=== PATIENT | female | born 1960 | race Caucasian/White ===

== ENCOUNTER 2017-04-17 08:14 | Emergency (ER) | payer BC ==
[~2017-04-17] VITALS: Ht 152.4 cm; Wt 78.0 kg
[~2017-04-17 08:14] MED LIST: NAPR-260 PO
[2017-04-17 08:20] VITALS: Ht 152.4 cm; Wt 78.0 kg
[2017-04-17] MEDS ORDERED: HYDROCODONE/APAP (5/325) TAB PO ONE (09:00)
--- NOTE | 2017-04-17 09:57 | RADRPT ---
PROCEDURE: XR right ankle and left Ankle. CLINICAL INDICATION: Bilateral ankle pain TECHNIQUE: 3 views of the right ankle and 3 views of the left ankle were performed. COMPARISON: Radiographs of the left ankle May 20, 2016 FINDINGS: Right ankle: There is no evidence of acute fracture. Joint spaces are preserved. The soft tissues are grossly unremarkable. The talar dome is normal. There is calcaneal enthesopathy. Left ankle. There is no evidence of acute fracture. Joint spaces are preserved. The soft tissues are grossly unremarkable. Talar dome is normal. There is calcaneal enthesopathy. IMPRESSION: 1. No radiographic evidence of acute osseous abnormality of either ankle. 2. Calcaneal enthesopathy bilaterally. RPTAT: UU .Oscar Rangel MD, Date Time Electronically viewed and signed by .Oscar Rangel MD, on 04/17/2017 09:57 .K/
--- NOTE | 2017-04-17 09:58 | RADRPT ---
PROCEDURE: XR Elbow. CLINICAL INDICATION: Trauma, left elbow pain TECHNIQUE: AP, lateral and oblique views of the left elbow performed. COMPARISON: None. FINDINGS: There is no radiographic evidence of acute fracture or dislocation. There is no significant joint e ffusion. The joint spaces are preserved. The soft tissues are grossly unremarkable. IMPRESSION: 1. No radiographic evidence of acute osseous abnormality or significant joint effusion. RPTAT: UU .Oscar Rangel MD, MD Date Time Electronically viewed and signed by .Oscar Rangle MD, on 04/17/2017 09:58 .K/
--- NOTE | 2017-04-17 09:59 | RADRPT ---
PROCEDURE: XR Knee. CLINICAL INDICATION: Bilateral knee pain TECHNIQUE: Three views of the right knee and 3 views of the left knee are available for review. COMPARISON: None available FINDINGS: Right knee: There is no evidence of acute fracture. There is severe medial femorotibial compartmen t osteoarthrosis with mild lateral and patellofemoral compartment osteoarthrosis. There is no signi ficant joint effusion. The soft tissues appear grossly unremarkable. There is mild genu varus. Left knee: There is no evidence of acute fracture. There is moderate to severe medial and mild lat eral and patellofemoral compartment osteoarthrosis. There is no significant joint effusion. The so ft tissues are grossly unremarkable. There is mild genu varus. IMPRESSION: 1. No radiographic evidence of acute osseous abnormality of either knee. 2. Tricompartmental osteoarthrosis of both knees, medial femorotibial compartment, severe on the ri ght and moderate to severe on the left. RPTAT: UU .Oscar Rangel MD, MD Date Time Electronically viewed and signed by .Oscar Rangel MD, MD on 04/17/2017 09:59 .K/
[2017-04-17] MEDS ORDERED: TRAM50TA2 PO (10:10)
[2017-04-17 10:34] VITALS: BP 128/75; PULSE 74; RESP 18; TEMP 97.4
--- NOTE | 2017-04-17 10:36 | ERD ---
ER Documentation Chief Complaint Date/Time DATE: 04/17/17 TIME: 10:29 Chief Complaint b/l knee pain , lt elbow pain s/p fall x 2 days ago HPI This is a 56-year-old female that presents to the ER with bilateral knee pain that is been going on for the last few months. 2 days ago patient did fall and states that knee pain has gotten worse. She is also complaining of left elbow pain and bilateral ankle pain. Pain is described as throbbing in quality it is nonradiating. Patient tried taking Aleve however it did not help. Pain is worse whenever she walks. She denies any numbness or tingling of her extremities. She denies any fevers or chills. ROS 12 point review of systems was done, all negative except per HPI. Medications Home Meds Active Scripts Tramadol HCl (Tramadol HCl) 50 Mg Tablet, 50 MG PO Q4 Y for PAIN, #20 TAB Prov:MAZIN HAN 04/17/17 Naproxen* (Naprosyn*) 500 Mg Tablet, 500 MG PO BID Y for PAIN AND/OR INFLAMMATION, #30 TAB Prov:STACY RUTH PA-C 05/20/16 Allergies Allergies: Coded Allergies: No Known Allergies (Verified Allergy, Unknown, 04/17/17) PMhx/Soc History of Surgery: No Anesthesia Reaction: No Hx Neurological Disorder: No Hx Respiratory Disorders: No Hx Cardiac Disorders: No Hx Psychiatric Problems: No Hx Miscellaneous Medical Probl: Yes (arthritis) Hx Alcohol Use: No Hx Substance Use: No Hx Tobacco Use: No Smoking Status: Never smoker Physical Exam Vitals Vital Signs Date Time Temp Pulse Resp B/P Pulse Ox O2 Delivery O2 Flow Rate FiO2 04/17/17 08:20 98.1 87 18 118/74 98 Physical Exam GENERAL: The patient is well developed and appropriate for usual state of health , in no apparent distress. HEENT: Atraumatic. CHEST: Clear to auscultation bilaterally. There are no rales, wheezes or rhonchi. HEART: Regular rate and rhythm. No murmurs, clicks, rubs or gallops. EXTREMITIES: left elbow: patient has full ROM of the left elbow, no crepitus no deformities. elbow is not ttp. Left knee: patient has painful extension and flexion of the left knee, however normal ROM. negative anterior drawer, negative posterior drawer, negative aydee. she is TTP along the patella. Right Knee: patient has painful extension and flexion of the right knee, however normal ROM. negative anterior drawer, negative posterior drawer, negative aydee. she is TTP along the patella. normal and but painful ROM of bilateral ankles. negative tarsal twist test. +2 pulses. normal strength of bilateral feet. L4, L5, S1 are intact. negative squeeze test. NEURO: Alert and oriented. SKIN: There is no apparent rash or petechia. The skin is warm and dry. Results 24 hrs Current Medications Medications (Trade) Dose Ordered Sig/Krzysztof Route PRN Reason Start Time Stop Time Status Last Admin Dose Admin Acetaminophen/ Hydrocodone Bitart (Jeannette (5/325)) 1 tab ONCE ONCE PO 04/17/17 09:00 04/17/17 09:01 DC 04/17/17 08:47 Procedures/MDM This is a 56-year-old female presents to the ER with bilateral knee pain, left elbow pain and bilateral ankle pain. Patient does have a past medical history of joint pain, on x-ray there was evidence of arthritis in bilateral knees. This may be the reason for patient's ongoing bilateral knee pain. There is no evidence of fractures or dislocations secondary to the fall. Patient is neurovascularly intact and has full range of motion of all extremities. She is afebrile and well-appearing. She is able to ambulate in the ER without any problems. She is neurologically intact with no focal neurological deficits. I doubt deep space infection, septic joint, septic arthritis, osteomyelitis. Patient will be sent home with tramadol. She is to follow-up with her primary care doctor within 1-2 days or return to ER sooner if symptoms worsen. My medical decision making was shared with the patient she understands and agrees with plan. Departure Diagnosis: Primary Impression: Knee pain Condition: Stable Patient Instructions: Osteoarthritis: Coping with Pain Additional Instructions: Call your primary care doctor TOMORROW for an appointment during the next 1-2 days.See the doctor sooner or return here if your condition worsens before your appointment time. MAZIN HAN April 17, 2017 10:36
== END 2017-04-17 10:35 | disposition home or self-care (01) ==
LOC: FTE 08:14
DX: M25.562 Pain in left knee (principal); M25.561 Pain in right knee

== ENCOUNTER 2017-04-24 08:22 | Emergency (ER) | payer BC ==
[~2017-04-24] VITALS: Ht 160 cm; Wt 80.0 kg
[~2017-04-24 08:22] MED LIST changes: +TRAM50TA2 PO
[2017-04-24 08:24] VITALS: Ht 160 cm; Wt 80.0 kg
[2017-04-24] MEDS ORDERED: SOD CHLORIDE 0.9% 1,000 ML IV STA (08:37)
[2017-04-24] MEDS ORDERED: ONDANSETRON 4 MG INJ IV STA (08:37)
[2017-04-24] MEDS ORDERED: HYDROmorphONE 1 MG/ML SYG IV STA ×2 (08:37→11:19)
[2017-04-24 09:07] LABS: ADD SCAN DIFF NO
[2017-04-24 09:12] LABS: BASOPHILS % 0.2 % (0.0-2.0); EOSINOPHILS # 0.1 10^3/ul (0.0-0.5); EOSINOPHILS % 0.8 % (0.0-7.0); HEMATOCRIT 41.3 % (37.0-47.0); HEMOGLOBIN 13.9 g/dl (12.0-16.0); LYMPHOCYTES # 2.7 10^3/ul (0.8-2.9); LYMPHOCYTES % 29.1 % (15.0-51.0); MEAN CORPUSCULAR HEMOGLOBIN 29.1 pg (29.0-33.0); MEAN CORPUSCULAR HGB CONC 33.7 g/dl (32.0-37.0); MEAN CORPUSCULAR VOLUME 86.6 fl (82.0-101.0); MEAN PLATELET VOLUME 9.8 fl (7.4-10.4); MONOCYTE # 0.6 10^3/ul (0.3-0.9); NEUTROPHIL # 5.7 10^3/ul (1.6-7.5); NEUTROPHILS % 62.5 % (39.0-77.0); PLATELET COUNT 392 10^3/UL (140-415); RED BLOOD COUNT 4.77 10^6/ul (4.20-5.40); RED CELL DISTRIBUTION WIDTH 12.5 % (11.5-14.5); WHITE BLOOD COUNT 9.2 10^3/ul (4.8-10.8)
[2017-04-24 09:24] LABS: INR 0.99; PROTIME 13.1 Sec (12.2-14.2)
--- NOTE | 2017-04-24 09:26 | RADRPT ---
PROCEDURE: CT Abdomen and Pelvis without contrast. CLINICAL INDICATION: Abdominal pain TECHNIQUE: CT of the abdomen and pelvis was performed on a multi-detector scanner without IV contr ast. Coronal and sagittal images were reformatted from the axial data set. One or more of the foll owing dose reduction techniques were used: automated exposure control, adjustment of the mA and/or kV according to patient size, use of iterative reconstruction technique. CTDI = 17.84 mGy. DLP = 10 33.29 mGy-cm. COMPARISON: None. FINDINGS: CT abdomen: The lung bases are clear. The heart size is normal, without pericardial effusion. Hepatomegaly is noted, measuring 20 cm. No focal hepatic mass is identified. Gallbladder, biliary tree, pancreas, spleen, adrenal glands and kidneys are unremarkable. No urolithiasis or obstructive uropathy is nahid ntified. Small hiatal hernia is noted. The stomach is otherwise grossly unremarkable. The aorta is of normal caliber. There is no retroperitoneal lymphadenopathy. The vance hepatis reg ion is clear. CT pelvis: Rectal wall thickening and perirectal edema are noted, compatible with proctitis. Mild retained fec al material is suggestive of constipation. No bowel obstruction, free intraperitoneal air or absces s is identified. The appendix is well visualized and normal. There is no diverticulosis or diverti culitis. Urinary bladder, uterus and adnexa are grossly unremarkable. No pelvic mass, free fluid o r lymphadenopathy is identified. The surrounding osseous structures are unremarkable. No osteolytic or osteoblastic lesion is detect ed. IMPRESSION: 1. Rectal wall thickening and perirectal edema are identified, compatible with proctitis. 2. Mild retained fecal material is suggestive of constipation. 3. Hepatomegaly is noted, without evidence of focal mass. 4. Small hiatal hernia is present. 5. No mass or lymphadenopathy is identified. RPTAT: EE .Nando Ramirez MD, Date Time Electronically viewed and signed by .Nando Ramirez MD, MD on 04/24/2017 09:26 .R/
[2017-04-24 09:27] LABS: ALBUMIN 4.6 g/dl (3.3-4.9); ALBUMIN/GLOBULIN RATIO 1.7; BILIRUBIN,INDIRECT 0.3 mg/dl (0-1.1); BILIRUBIN,TOTAL 0.3 mg/dl (0.2-1.3); CALCIUM 9.9 mg/dl (8.4-10.2); CREATININE 0.59 mg/dl (0.44-1.00); POTASSIUM 4.1 mmol/L (3.5-5.1); TOTAL PROTEIN 7.3 g/dl (6.1-8.1)
[2017-04-24] MEDS ORDERED: PIPER-TAZO 3.375 GM IV (PMX) 100 ML IVPB ONE (10:00)
[2017-04-24 11:02] VITALS: BP 108/59; PULSE 85; RESP 18; TEMP 97.4
--- NOTE | 2017-04-24 11:19 | ERD ---
ER Documentation Chief Complaint Date/Time DATE: 04/24/17 TIME: 11:14 Chief Complaint constipated x 3 days, appears having hemorrhoids, hAS RECTAL PAIN HPI 57-year-old woman complains of lower abdominal pain and rectal pain, which is severe beginning last night associated with recent constipation. She does have a history of hemorrhoids but denies blood per rectum or melena. She denies fevers or chills, no vomiting, no chest pain or shortness of breath. ROS All systems reviewed and are negative except as per history of present illness. Medications Home Meds Discontinued Scripts Tramadol HCl (Tramadol HCl) 50 Mg Tablet, 50 MG PO Q4 Y for PAIN, #20 TAB Prov:MAZIN HAN 04/17/17 Naproxen* (Naprosyn*) 500 Mg Tablet, 500 MG PO BID Y for PAIN AND/OR INFLAMMATION, #30 TAB Prov:STACY RUTH PA-C 05/20/16 Allergies Allergies: Coded Allergies: No Known Allergies (Verified Allergy, Unknown, 04/24/17) PMhx/Soc Constipation, hemorrhoids History of Surgery: No Anesthesia Reaction: No Hx Neurological Disorder: No Hx Respiratory Disorders: No Hx Cardiac Disorders: No Hx Psychiatric Problems: No Hx Miscellaneous Medical Probl: Yes (arthritis,hemorrhoids) Hx Alcohol Use: No Hx Substance Use: No Hx Tobacco Use: No Smoking Status: Never smoker FmHx Family History: No diabetes Physical Exam Vitals Vital Signs Date Time Temp Pulse Resp B/P Pulse Ox O2 Delivery O2 Flow Rate FiO2 04/24/17 11:02 97.4 85 18 108/59 98 Room Air 04/24/17 08:24 98.1 80 18 142/80 99 Physical Exam GENERAL: Well-developed, well-nourished, moderate discomfort HEENT: Moist mucous membranes, pink conjunctiva, no cervical spine tenderness or step-off deformities, no goiter, no jaundice or icterus, extraocular movements intact without pain. No submandibular induration, and no pharyngeal erythema NEURO: Alert and oriented 3, cranial nerves II through XII intact bilaterally, pupils equal round reactive to light, no focal deficits or facial asymmetry, sensation intact distally Strength 5/5 in upper and lower extremities bilaterally CARDIAC: Regular rate and rhythm, no murmurs rubs or gallops LUNGS: Clear bilaterally no wheezing crackles or stridor ABDOMEN: Soft nontender, no guarding, no rigidity, no rebound, no psoas sign no obturator sign. Normoactive bowel sounds SKIN: Warm and dry to touch, no abrasions, contusions, or hematomas, no lacerations, no ecchymosis, no target lesions, and without ulcers EXTREMITIES: No clubbing cyanosis or edema, calves are bilaterally symmetrical, no Homans sign, no popliteal cord sign. Distal pulses equal and bilateral PSYCH: Normal affect without agitation or irritability Result Diagram: 04/24/1745 04/24/17 0845 Results 24 hrs Laboratory Tests Test 04/24/17 08:45 White Blood Count 9.210^3/ul Red Blood Count 4.7710^6/ul Hemoglobin 13.9g/dl Hematocrit 41.3% Mean Corpuscular Volume 86.6fl Mean Corpuscular Hemoglobin 29.1pg Mean Corpuscular Hemoglobin Concent 33.7g/dl Red Cell Distribution Width 12.5% Platelet Count 14514^3/UL Mean Platelet Volume 9.8fl Neutrophils % 62.5% Lymphocytes % 29.1% Monocytes % 7.0% Eosinophils % 0.8% Basophils % 0.2% Nucleated Red Blood Cells % 0.0/100WBC Neutrophils # 5.710^3/ul Lymphocytes # 2.710^3/ul Monocytes # 0.610^3/ul Eosinophils # 0.110^3/ul Basophils # 0.010^3/ul Nucleated Red Blood Cells # 0.010^3/ul Prothrombin Time 13.1Sec Prothrombin Time Ratio 1.0 INR International Normalized Ratio 0.99 Sodium Level 143mmol/L Potassium Level 4.1mmol/L Chloride Level 108mmol/L Carbon Dioxide Level 26mmol/L Anion Gap 13 Blood Urea Nitrogen 18mg/dl Creatinine 0.59mg/dl Glucose Level 129mg/dl Calcium Level 9.9mg/dl Total Bilirubin 0.3mg/dl Direct Bilirubin 0.00mg/dl Indirect Bilirubin 0.3mg/dl Aspartate Amino Transf (AST/SGOT) 22IU/L Alanine Aminotransferase (ALT/SGPT) 47IU/L Alkaline Phosphatase 93IU/L Total Protein 7.3g/dl Albumin 4.6g/dl Globulin 2.70g/dl Albumin/Globulin Ratio 1.70 Lipase 63U/L Current Medications Medications (Trade) Dose Ordered Sig/Krzysztof Route PRN Reason Start Time Stop Time Status Last Admin Dose Admin Sodium Chloride (NS) 1,000 ml @ 1,000 mls/hr Q1H STAT IV 04/24/17 08:37 04/24/17 09:36 DC 04/24/17 08:53 Hydromorphone HCl (Dilaudid) 1 mg ONCE STAT IV 04/24/17 08:37 04/24/17 08:38 DC 04/24/17 08:53 Ondansetron HCl 4 mg 4 mg ONCE STAT IV 04/24/17 08:37 04/24/17 08:38 DC 04/24/17 08:53 Piperacillin Sod/ Tazobactam Sod (Zosyn 3.375gm/ 100 ml (Pmx)) 100 ml @ 200 mls/hr ONCE ONCE IVPB 04/24/17 10:00 04/24/17 10:29 DC 04/24/17 09:38 Procedures/MDM IV line was established patient was placed on metallurgist helper rhythm strip revealed a sinus rhythm at about 90 bpm with upright P and T waves. Patient was afebrile. I administered 1 L normal saline intravenously and hydromorphone 1 mg IV with good effect. Inspection revealed a tender firm internal hemorrhoid with prolapse, no active bleeding and no evidence of thrombosis or discoloration. For continued pain she was given another dose of hydromorphone [address] scan of the abdomen and pelvis revealed acute proctitis with bowel wall edema. Please refer to radiologist dictation for full report. Patient received piperacillin tazobactam 3.375 g IV 1. CBC and electrolytes were unremarkable, liver function tests were normal. Patient will be admitted to [facility] for continued medical management and possible surgical consultation. Departure Diagnosis: Primary Impression: Proctitis Additional Impressions: Intractable pain Hemorrhoid prolapse Condition: RODRIGO Horne MD Apr 24, 2017 11:19
[2017-04-24] MEDS ORDERED: BISACODYL 10 MG SUPP PR ONE (15:00)
[2017-04-24] MEDS ORDERED: SOD CHLORIDE 0.9% 1,000 ML IV SCH (15:07)
[2017-04-24] MEDS ORDERED: DOCUSATE SODIUM 100 MG CAP PO PRN (15:30)
[2017-04-24] MEDS ORDERED: ALBUTEROL/IPRATROPIUM (NEB) 3 ML AMP HHN PRN (15:30)
[2017-04-24] MEDS ORDERED: ONDANSETRON 4 MG INJ IV PRN (15:30)
[2017-04-24] MEDS ORDERED: morphine 2 MG INJ IV PRN (15:30)
[2017-04-24] MEDS ORDERED: NACL 0.9% 3 ML SYG IV SCH (15:30)
[2017-04-24] MEDS ORDERED: NITROGLYCERIN (SL) 0.4 MG TAB SL PRN (15:30)
[2017-04-24] MEDS ORDERED: MAGNESIUM HYDROXIDE 30ML CUP PO PRN (15:30)
[2017-04-24] MEDS ORDERED: NA PHOSPHATE/BIPHOS 133 ML ENEMA PR PRN (15:30)
[2017-04-24] MEDS ORDERED: ACETAMINOPHEN 325 MG TAB PO PRN (15:30)
[2017-04-24] MEDS ORDERED: HYDROCODONE/APAP (5/325) TAB PO PRN (15:30)
[2017-04-24] MEDS ORDERED: hydrALAzine 20 MG INJ IV PRN (15:30)
[2017-04-24] MEDS ORDERED: LORAZEPAM 0.5 MG TAB PO PRN (15:30)
--- NOTE | 2017-04-24 15:35 | DS ---
Date/Time of Note Date/Time of Note DATE: 04/24/17 TIME: 15:34 Discharge Summary Admission/Discharge Info Admit Date/Time Discharge Date/Time Final Diagnosis Proctitis - Pt left AMA from ER Hospital Course Pt left AMA from ER Home Meds Discontinued Scripts Tramadol HCl (Tramadol HCl) 50 Mg Tablet, 50 MG PO Q4 Y for PAIN, #20 TAB Prov:MAZIN HAN 04/17/17 Naproxen* (Naprosyn*) 500 Mg Tablet, 500 MG PO BID Y for PAIN AND/OR INFLAMMATION, #30 TAB Prov:STACY RUTH PA-C 05/20/16 Primary Care Provider Not On Staff Doctor Pending Labs Laboratory Tests Test 04/24/17 08:45 White Blood Count 9.210^3/ul (4.8-10.8) Red Blood Count 4.7710^6/ul (4.20-5.40) Hemoglobin 13.9g/dl (12.0-16.0) Hematocrit 41.3% (37.0-47.0) Mean Corpuscular Volume 86.6fl (82.0-101.0) Mean Corpuscular Hemoglobin 29.1pg (29.0-33.0) Mean Corpuscular Hemoglobin Concent 33.7g/dl (32.0-37.0) Red Cell Distribution Width 12.5% (11.5-14.5) Platelet Count 84474^3/UL (140-415) Mean Platelet Volume 9.8fl (7.4-10.4) Neutrophils % 62.5% (39.0-77.0) Lymphocytes % 29.1% (15.0-51.0) Monocytes % 7.0% (0.0-11.0) Eosinophils % 0.8% (0.0-7.0) Basophils % 0.2% (0.0-2.0) Nucleated Red Blood Cells % 0.0/100WBC (0.0-0.0) Neutrophils # 5.710^3/ul (1.6-7.5) Lymphocytes # 2.710^3/ul (0.8-2.9) Monocytes # 0.610^3/ul (0.3-0.9) Eosinophils # 0.110^3/ul (0.0-0.5) Basophils # 0.010^3/ul (0.0-0.1) Nucleated Red Blood Cells # 0.010^3/ul (0.0-0.0) Prothrombin Time 13.1Sec (12.2-14.2) Prothrombin Time Ratio 1.0 INR International Normalized Ratio 0.99 Sodium Level 143mmol/L (135-144) Potassium Level 4.1mmol/L (3.5-5.1) Chloride Level 108mmol/L (97-110) Carbon Dioxide Level 26mmol/L (21-31) Anion Gap 13 (8-16) Blood Urea Nitrogen 18mg/dl (7-20) Creatinine 0.59mg/dl (0.44-1.00) Glucose Level 129mg/dl (70-220) Calcium Level 9.9mg/dl (8.4-10.2) Total Bilirubin 0.3mg/dl (0.2-1.3) Direct Bilirubin 0.00mg/dl (0.00-0.20) Indirect Bilirubin 0.3mg/dl (0-1.1) Aspartate Amino Transf (AST/SGOT) 22IU/L (15-46) Alanine Aminotransferase (ALT/SGPT) 47IU/L (13-69) Alkaline Phosphatase 93IU/L (42-121) Total Protein 7.3g/dl (6.1-8.1) Albumin 4.6g/dl (3.3-4.9) Globulin 2.70g/dl (1.3-3.2) Albumin/Globulin Ratio 1.70 Lipase 63U/L (23-300) JAVIER REYES Apr 24, 2017 15:35
[2017-04-24] MEDS ORDERED: PIPER-TAZO 3.375 GM IV (PMX) 100 ML IVPB SCH (18:00)
[2017-04-24] MEDS ORDERED: HEPARIN 5,000 UNIT/0.5 ML VIAL SC SCH (21:00)
[2017-04-25] MEDS ORDERED: PANTOPRAZOLE (EC) 40 MG TAB PO SCH (06:00)
== END 2017-04-24 15:00 | disposition left against medical advice (07) ==
LOC: E/R 08:22
DX: K62.89 Other specified diseases of anus and rectum (principal); K64.8 Other hemorrhoids; R10.30 Lower abdominal pain, unspecified; R40.2142 Coma scale, eyes open, spontaneous, at arrival to emergency department; R40.2362 Coma scale, best motor response, obeys commands, at arrival to emergency department; R40.2252 Coma scale, best verbal response, oriented, at arrival to emergency department
CPT/HCPCS: 36415; 74176; 80053; 83690; 85025; 85610; 96374; 96375; 96376; 99285; J1170; J2405; J2543; J7030

== ENCOUNTER 2019-03-30 11:17 | Emergency (ER) | payer BC, OTHER ==
[~2019-03-30] VITALS: Ht 152.4 cm; Wt 77.4 kg
[2019-03-30 11:45] VITALS: Ht 152.4 cm; Wt 77.4 kg
[2019-03-30] MEDS ORDERED: ACET325T33 PO (16:45)
[2019-03-30] MEDS ORDERED: NAPR-985 PO (16:45)
[2019-03-30 16:55] VITALS: BP 135/79; PULSE 68; RESP 18
--- NOTE | 2019-03-30 16:57 | ERD ---
ER Documentation Chief Complaint Chief Complaint right knee pain x 5 days HPI This is a 58-year-old female patient presents emergency room with complaint of pain with walking to right knee. Patient states she knows she has arthritis however the pain has worsened over the last week. States she stood up yesterday and heard a crunching sound in her knee. Patient ambulating with antalgic gait. ROS All systems reviewed and are negative except as per history of present illness. Medications Home Meds Active Scripts Acetaminophen* (Tylenol*) 325 Mg Tablet, 2 TAB PO Q8 PRN for PAIN AND OR ELEVATED TEMP, #20 TAB Prov:CARMINA NAVA CLOSING SUPERVISOR 03/30/19 Naproxen* (Naprosyn*) 500 Mg Tablet, 500 MG PO BID PRN for PAIN AND/OR INFLAMMATION, #30 TAB Prov:CARMINA NAVA CLOSING SUPERVISOR 03/30/19 Allergies Allergies: Coded Allergies: No Known Allergies (Verified Allergy, Unknown, 04/24/17) PMhx/Soc History of Surgery: No Anesthesia Reaction: No Hx Neurological Disorder: No Hx Respiratory Disorders: No Hx Cardiac Disorders: No Hx Psychiatric Problems: No Hx Miscellaneous Medical Probl: Yes (arthritis,hemorrhoids) Hx Alcohol Use: No Hx Substance Use: No Hx Tobacco Use: No Smoking Status: Never smoker FmHx Family History: No diabetes, No coronary disease, No other Physical Exam Vitals Vital Signs Date Temp Pulse Resp B/P (MAP) Pulse Ox O2 O2 Flow FiO2 Time Delivery Rate 03/30/19 97.9 69 18 132/70 98 11:45 (90) Physical Exam Const: No acute distress Head: Atraumatic Eyes: Normal Conjunctiva ENT: Normal External Ears, Nose and Mouth. Neck: Full range of motion. No meningismus. Resp: Clear to auscultation bilaterally Cardio: Regular rate and rhythm, no murmurs Abd: Soft, non tender, non distended. Normal bowel sounds Skin: No petechiae or rashes Back: No midline or flank tenderness Ext: No cyanosis, or edema Lower Extremity Pain onset: increasing over 1 week Skin: No laceration, no bruising, no abrasions Compartments: Soft, no erythema, normothermic, no swelling, no claudication Motor: Full active range of motion hip/knee/ankle/foot Sensation: No paraesthesia Bones: Nontender patella/head of fibula/proximal tibia/ malleoli/foot Joints: No effusion, patella midline, neg anterior drawer, neg posterior drawer , neg Mmii, neg Sedrick, neg Varus/Valgus Pulses/Perfusion: 2+ DP, Capillary refill < 2 seconds Gait: antalgic gait ROM: No limitations with active or passive range of motion [place] Rule for xray: recommended Neur: Awake and alert Psych: Normal Mood and Affect Procedures/MDM This is a 58-year-old female patient who presents the emergency room with pain in right knee ED COURSE: The patient was stable throughout ED course. I kept the patient and/or family informed of laboratory and diagnostic imaging results throughout the ED course DIAGNOSTIC IMAGING: Read by radiologist. IMPRESSION: 1. Advanced try compartmental osteoarthritis. This has progressed when compared to 04/17/2017. 2. No acute abnormality demonstrated. PROCEDURES: Right knee immobilizer placed MEDICATIONS GIVEN: None, she declines as she took Tylenol prior to arrival MDM: Patient's extremity symptoms have stabilized while they have been evaluated in the department and are appropriate for outpatient follow up. This patient has been evaluated for knee pain. Radiological evaluation is negative for fracture, dislocation, or avulsion. The physical exam of the knee d oes not reveal ligamentous or meniscal injury at this time. There is swelling in the joint. There is low suspicion for this being a septic joint as the patient is afebrile without recent illness, the joint is normothermic. No evidence of compartment syndrome, neurologic injury, vascular injury, open joint, open fracture, tendon laceration, or foreign body. The patient has been provided with knee immobilizer, patches declined, patient states she has cane at home. Instructed on RICE. Rx for NSAID provided. Patient needs to follow-up with primary care provider. DISPOSITION: The patient has been discharge home to follow-up with community physician. Departure Diagnosis: Primary Impression: Arthritis Condition: Stable Patient Instructions: VeroICristaCCristaE., Osteoarthritis: Coping with Pain Referrals: [facility] YOU HAVE RECEIVED A MEDICAL SCREENING EXAM AND THE RESULTS INDICATE THAT YOU DO NOT HAVE A CONDITION THAT REQUIRES URGENT TREATMENT IN THE EMERGENCY DEPARTMENT. FURTHER EVALUATION AND TREATMENT OF YOUR CONDITION CAN WAIT UNTIL YOU ARE SEEN IN YOUR DOCTORS OFFICE WITHIN THE NEXT 1-2 DAYS. IT IS YOUR RESPONSIBILITY TO MAKE AN APPOINTMENT FOR FOLOW-UP CARE. IF YOU HAVE A PRIMARY DOCTOR --you should call your primary doctor and schedule an appointment IF YOU DO NOT HAVE A PRIMARY DOCTOR YOU CAN CALL OUR PHYSICIAN REFERRAL HOTLINE AT IF YOU CAN NOT AFFORD TO SEE A PHYSICIAN YOU CAN CHOSE FROM THE FOLLOWING FORMERLY [facility] [address] [facility] [address] [place] [address] [facility] [address] [facility] [address] [facility]. [facility] [address] [facility] Urgent Care 7 a.m.- 11 p.m. Every Day of the Week NO APPOINTMENT OR AUTHORIZATION NEEDED Additional Instructions: Thank you very much for allowing us to participate in your care. Your health and safety is our top priority at [facility]. Call your primary care doctor TOMORROW for an appointment during the next 2-4 days and bring all the information and medications prescribed. Have prescriptions filled and follow precisely the directions on the label. If the symptoms get worse and your provider is unavailable, return to the Emergency Department immediately. CARMINA NAVA NP March 30, 2019 16:57
== END 2019-03-30 16:55 | disposition home or self-care (01) ==
LOC: FTE 11:17
DX: M19.90 Unspecified osteoarthritis, unspecified site (principal)
CPT/HCPCS: 73562